=== PATIENT | female | born 1960 | race Caucasian/White ===

== ENCOUNTER → 2016-07-23 | Outpatient (CLI) | payer BC ==
[~2016-07-23] MED LIST: ASPI81CH2 PO; FERR325T51 PO; LEVO88TA PO; MULTTAB58 PO
[2016-07-23 10:49] LABS: BASO % 0.9 %; BASO ABS # 0.03 K/uL (0-0.2); COMPLETE YES; EOS % 4.1 %; HEMATOCRIT 39.3 % (37-47); LYMPH % 34.9 %; LYMPH ABS # 1.19 K/uL (1.2-3.4); MEAN CELL VOLUME 92.7 fL (80-100); MEAN CORPUSCULAR HEMOGLOBIN 29.5 pg (25-34); MEAN CORPUSCULAR HGB CONC 31.8 g/dl (32-36); MEAN PLATELET VOLUME 9.4 fL (7.4-10.4); MONO % 13.2 %; NEUT % 46.9 %; PLATELET COUNT 266 K/uL (130-400); RED BLOOD COUNT 4.24 M/uL (4.2-5.4); WHITE BLOOD COUNT 3.41 K/uL (4.8-10.8)
[2016-07-23 11:01] LABS: ALT/SGPT 34 U/L (12-78); AST/SGOT 28 U/L (15-37); BLOOD UREA NITROGEN 15 mg/dl (7-18); BUN/CREATININE RATIO 15.9 (10-20); CARBON DIOXIDE 28 mmol/L (21-32); CHLORIDE 109 mmol/L (98-107); CHOLESTEROL 180 mg/dl (0-200); CREATININE 0.91 mg/dl (0.60-1.20); GLUCOSE 83 mg/dl (70-99); POTASSIUM 4.2 mmol/L (3.5-5.1); SODIUM 143 mmol/L (136-145); TRIGLYCERIDES 47 mg/dl (0-150); VERY LOW DENSITY LIPOPROT CALC 9 mg/dl
[2016-07-23 11:11] LABS: ALB/GLOB RATIO 1.1 (0.9-2); ALKALINE PHOSPHATASE 91 U/L (45-117); CHOLESTEROL/HDL RATIO 1.7; FERRITIN 20.8 ng/ml (8.0-388.0); HDL CHOLESTEROL 103 mg/dl; LDL CHOLESTEROL CALCULATED 68 mg/dl; TOTAL IRON BINDING CAPACITY 395 mcg/dl (250-450)
[2016-07-23 11:31] LABS: CALCIUM 9.5 mg/dl (8.5-10.1)
== END | disposition home or self-care (01) ==
LOC: C.LABBC 07:51
PROVIDERS: ATTEND Family Medicine
DX: Z13.220 Encounter for screening for lipoid disorders (principal); D64.9 Anemia, unspecified; E03.9 Hypothyroidism, unspecified

== ENCOUNTER → 2016-09-03 | Outpatient (CLI) | payer BC ==
--- NOTE | 2016-09-03 15:52 | MAMMOGRAPHY REPORT ---
BILATERAL DIGITAL SCREENING MAMMOGRAM WITH CAD: 09/03/2016 CLINICAL HISTORY: Routine screening. Patient has no complaints. TECHNIQUE: Current study was also evaluated with a Computer Aided Detection (CAD) system. Bilateral CC and MLO views were obtained. COMPARISON: Comparison is made to exams dated: 06/19/2015 mammogram, 01/19/2014 mammogram, 11/05/2012 m ammogram, 03/11/2011 mammogram - [facility], 11/28/2008, and 10/25/2007. BREAST COMPOSITION: The tissue of both breasts is extremely dense, which lowers the sensitivity of m ammography. FINDINGS: No suspicious masses, calcifications, or areas of architectural distortion are noted in ei ther breast. There has been no significant interval change compared to prior exams. IMPRESSION: ACR BI-RADS CATEGORY 1: NEGATIVE There is no mammographic evidence of malignancy. A 1 year screening mammogram is recommended. The pa tient will receive written notification of the results. Approximately 10% of breast cancers are not detected with mammography. A negative mammographic report should not delay biopsy if a clinically suggestive mass is present. Rosalina Li M.D. /:09/03/2016 12:30:31 Clinical Support Nurse: Annita BILL(Alexx)(), [facility] letter sent: Normal 1/2 BI-RADS Code: ACR BI-RADS Category 1: Negative
== END | disposition home or self-care (01) ==
LOC: C.MAMM 11:25
PROVIDERS: ATTEND Obstetrics & Gynecology
DX: Z12.31 Encounter for screening mammogram for malignant neoplasm of breast (principal)

== ENCOUNTER → 2017-04-07 | Outpatient (CLI) | payer BC | END | disposition home or self-care (01) | LOC: C.PAPS 08:35 | PROVIDERS: ATTEND Physician Assistant | DX: Z01.419 Encounter for gynecological examination (general) (routine) without abnormal findings (principal); Z11.51 Encounter for screening for human papillomavirus (HPV) ==

== ENCOUNTER → 2017-07-08 | Outpatient (CLI) | payer BC ==
[2017-07-08 09:37] LABS: BASO ABS # 0.04 K/uL (0-0.2); EOS % 3.6 %; EOS ABS # 0.14 K/uL (0-0.5); HEMATOCRIT 37.7 % (37-47); HEMOGLOBIN 11.7 g/dL (12.0-16.0); LYMPH % 33.6 %; LYMPH ABS # 1.31 K/uL (1.2-3.4); MEAN CELL VOLUME 85.3 fL (80-100); MEAN CORPUSCULAR HEMOGLOBIN 26.5 pg (25-34); MEAN PLATELET VOLUME 9.4 fL (7.4-10.4); MONO ABS # 0.39 K/uL (0.11-0.59); NEUT % 51.8 %; NEUT ABS # 2.02 K/uL (1.4-6.5); PLATELET COUNT 324 K/uL (130-400); RED CELL DISTRIBUTION WIDTH CV 15.2 % (11.5-14.5); RED CELL DISTRIBUTION WIDTH SD 47.7 fL (36.4-46.3)
[2017-07-08 09:52] LABS: ALBUMIN 3.7 gm/dl (3.4-5.0); ALT/SGPT 34 U/L (12-78); AST/SGOT 31 U/L (15-37); BLOOD UREA NITROGEN 13 mg/dl (7-18); CALCIUM 9.4 mg/dl (8.5-10.1); CARBON DIOXIDE 28 mmol/L (21-32); CREATININE 0.91 mg/dl (0.60-1.20); GLUCOSE 76 mg/dl (70-99); POTASSIUM 4.3 mmol/L (3.5-5.1); SODIUM 141 mmol/L (136-145)
[2017-07-08 10:02] LABS: ALKALINE PHOSPHATASE 115 U/L (45-117); TOTAL PROTEIN 7.2 gm/dl (6.4-8.2)
== END | disposition home or self-care (01) ==
LOC: C.LAB1850 07:21
PROVIDERS: ATTEND Nurse Practitioner Adult Health
DX: E03.9 Hypothyroidism, unspecified (principal); D64.9 Anemia, unspecified; D72.819 Decreased white blood cell count, unspecified

== ENCOUNTER → 2017-09-17 | Outpatient (CLI) | payer BC ==
--- NOTE | 2017-09-17 16:06 | MAMMOGRAPHY REPORT ---
BILATERAL DIGITAL DIAGNOSTIC MAMMOGRAM TOMOSYNTHESIS AND TARGETED BILATERAL ULTRASOUND: 09/17/2017 CLINICAL HISTORY: Callback from screening mammogram for bilateral asymmetries. Family history of gerald lux cancer including her mother, maternal grandmother, and aunt. TECHNIQUE: The study was acquired using full field digital technology and interpreted from soft copy. Breast tomosynthesis in addition to standard 2D mammography was performed. Bilateral CC and MLO spo t compression 2D and tomosynthesis images were obtained. COMPARISON: Comparison is made to exams dated: 09/07/2017 mammogram, 09/03/2016 mammogram, 06/19/2015 isael mogram, 01/19/2014 mammogram, 11/05/2012 mammogram, and 03/11/2011 mammogram - [facility]. BREAST COMPOSITION: The tissue of both breasts is extremely dense, which lowers the sensitivity of ma mmography. FINDINGS: Spot compression views of the left breast demonstrate a persistent lobulated mass measuring approximately 5 mm in the left medial breast at approximately 9:00, for which ultrasound was perform ed. The nodular asymmetry seen within the right lateral anterior breast on the cc view appears simil ar on the spot compression views to prior exams including the June 2015 exam and possibly some of th e older exams such as the 2008 exam. Targeted ultrasound was performed of the left medial breast in the region of the mammographic mass. In the left 930 breast, approximately 5 cm from the nipple, there is an anechoic mass with a few thin internal septations measuring 5 x 3 x 4 mm. The margins are not completely circumscribed. This cor responds with the mammographic mass and likely represents a complicated cyst. However, ultrasound-gu ided core needle biopsy is recommended for further evaluation. Targeted ultrasound was performed of the right lateral breast in the region of the mammographic asymmetry. Sonographically normal tissue is seen in this region, without evidence of a mass or other suspicious sonographic abnormality. IMPRESSION: ACR BI-RADS CATEGORY 4: SUSPICIOUS, ULTRASOUND ACR BI-RADS CATEGORY 4: SUSPICIOUS 1. Anechoic 5 mm mass in the left 930 breast. This corresponds with the mammographic mass and likel y represents a complicated cyst although ultrasound-guided core needle biopsy is recommended for furt her evaluation. 2. The right lateral breast asymmetry appears similar to prior exams including the 2015 exam on the additional views, without a corresponding suspicious sonographic abnormality evident. The asymmetry is probably benign and recommend follow-up diagnostic tomosynthesis mammograms in 6 months to confirm stability. The patient has been verbally notified of the results. She tentatively scheduled the biopsy before l eaving the department. Some breast cancers are not detected with mammography. A negative mammographic report should not yan y biopsy if a clinically suggestive mass is present. Rosalina Li M.D. ah/:09/17/2017 12:42:03 Railroad Firer: RT Priscilla(R)(M), [facility]; Rosalina Li MD, [facility] letter sent: Abnormal 4/5 OVERALL STUDY BIRADS: 4 Suspicious abnormality
== END | disposition home or self-care (01) ==
LOC: C.MAMM 09:35
PROVIDERS: ATTEND Nurse Practitioner Adult Health
DX: N64.89 Other specified disorders of breast (principal); N63.22 Unspecified lump in the left breast, upper inner quadrant

== ENCOUNTER → 2017-09-29 | Outpatient (CLI) | payer BC ==
--- NOTE | 2017-09-29 10:13 | Discharge Instructions ---
Discharge Instructions Procedure Procedure Date: Sep 29, 2017. Reason for visit: Left Mass. Discharge Discharge Date: Sep 29, 2017. Discharge Diagnosis: post left breast ultrasound guided core biopsy Medications Restart Stopped Medication(s): May resume Aspirin tomorrow Instructions Activity Recommendations: Additional Limitations (see below) Return to School/Work: no limitations Recommended Home Diet: No Limitations Provider Instructions: ACTIVITY RECOMMENDATIONS: * No lifting, pushing, pulling or exercising the affected side for three days. RETURN TO SCHOOL/WORK: * You may return to work/school after the procedure, but do not perform any strenuous activities for 24 to 48 hours. MEDICATIONS: * Tylenol (two 325 mg) every four to six hours if needed for mild pain (if not allergic to Tylenol). DIET: * Resume previous diet. SPECIAL CARE INSTRUCTIONS: * Keep biopsy site dry for 24 hours. May shower after 24 hours, but do not soak (bathe) incision. May remove Tegaderm (plastic patch) 24 hours after procedure * Leave the steri-strips on for one week. Allow the steri-strips to fall off by themselves. If not off after one week, you may remove them. You may place a Bandaid crosswise over the strips, if desired. * Apply ice 10 minutes on and 10 minutes off as needed. * Wear a bra at bedtime to sleep more comfortably for 2-3 days. * Your referring physician should have the results after approximately 5 to 7 business days. * Call for unusual bleeding, fever, drainage, etc or if you have any questions call [phone] during normal business hours or after hours call Dr Patton, . FOLLOW UP VISIT: Follow-up with Referring Physician as scheduled. Allergies Coded Allergies: Amoxicillin (Verified Allergy, Unknown, RASH, ITCHING, 11/29/14) Erlinda Ventura Recommendations: Call your doctor if: * Temperature above 101 degrees * Pain not relieved by pain medicine ordered * There is increased drainage or redness from any incision * You have any unanswered questions or concerns. Your Doctors Instructions noted above were prepared by provider Jeane Patton. Patient Signature Section: Patient Instructions Signature Page Adriana Montano Patient (or Guardian) Signature/Date: I have read and understand the instructions given to me by my caregivers. Caregiver/RN/Doctor Signature/Date: The above-named patient and/or guardian has received patient instructions on this date. + Original Patient Signature Page (only) stays with chart. Please make copy for patient.
--- NOTE | 2017-09-29 15:21 | MAMMOGRAPHY REPORT ---
UNILATERAL LEFT DIGITAL DIAGNOSTIC MAMMOGRAM TOMOSYNTHESIS: 09/29/2017 CLINICAL HISTORY: Status post ultrasound-guided core biopsy of a 5 mm mass in the 9:30 left breast. Please refer to the report from left breast ultrasound-guided core biopsy performed at the same time for full detail. IMPRESSION: POST PROCEDURE IMAGING FOR MARKER PLACEMENT Please refer to the report from left breast ultrasound-guided core biopsy performed at the same time for full detail. Some breast cancers are not detected with mammography. A negative mammographic report should not yan y biopsy if a clinically suggestive mass is present. Jeane Patton M.D. ay/:09/29/2017 10:15:03 Tester Operator Helper: RT Boaz(Alexx)(M), [facility] BI-RADS Code: Post Procedure Imaging For Marker Placement
--- NOTE | 2017-09-29 15:21 | MAMMOGRAPHY REPORT ---
ULTRASOUND GUIDED BIOPSY LEFT BREAST: 09/29/2017 CLINICAL HISTORY: 57-year-old woman presents for biopsy of a 5 mm anechoic mass with thin internal no nvascular septations in the 9:30 left breast on ultrasound, thought to correlate with a mammographic mass. COMPARISON: Comparison is made to exams dated: 09/17/2017 ultrasound, 09/17/2017 mammogram, 09/07/2017 m ammogram, 09/03/2016 mammogram, 06/19/2015 mammogram, and 01/19/2014 mammogram - [facility] [place]. PATIENT CONSENT: The procedure, risks and benefits were discussed with the patient and informed conse nt was obtained both verbally and in writing. Specific risks to this procedure include: bleeding, in fection, puncture of adjacent structure, nontarget biopsy, sampling error, pain, metal allergy and me dication reaction. PROCEDURE DESCRIPTION: A time out was performed and the left breast was agreed as the site of biopsy. The skin was prepped and draped in the usual sterile fashion. The anechoic, cystic appearing mass in the 930 left breast was chosen as the target for biopsy. Subcutaneous and intraparenchymal 1% buffer ed lidocaine, with and without epinephrine, was administered as local anesthesia. A skin incision was made. Through the incision, to samples were taken with a 14 gauge Achieve biopsy device. The mass nearly completely resolved after the first biopsy pass. A ribbon shaped metallic marker was placed a t the biopsy site. Hemostasis was achieved after manual compression. The patient tolerated the proced ure well and there was no immediate complication. The samples were sent to the pathology department in an appropriately labeled container. Postprocedure left CC and MLO tomosynthesis images were obtained. There is a new ribbon-shaped biops y marker clip and no significant hematoma in the 9:30 middle one third of the left breast. The biops y marker clip aligns with the previously observed mammographic mass, confirming mammographicsonograp hic correlation. The mass is less well seen, which is also concordant with the ultrasound biopsy fin dings of near complete resolution of the mass after the first biopsy pass. IMPRESSION: ULTRASOUND GUIDED BIOPSY 1. Status post ultrasound-guided core biopsy of a cystic-appearing mass in the 9:30 left breast, with biopsy marker clip placed at the site. 2. Pending benign pathology results, recommend 6 month follow-up right diagnostic tomosynthesis mamm ograms and possible ultrasound to ensure stability of an effacing asymmetry. The patient will receive notification of the biopsy results from her referring physician. Jeane Patton M.D. ay/:09/29/2017 12:13:40 Door Patcher: RT Boaz(Alexx)(Henry), [facility]
== END | disposition home or self-care (01) ==
LOC: C.MAMM 09:29
PROVIDERS: ATTEND Nurse Practitioner Adult Health
DX: N63.20 Unspecified lump in the left breast, unspecified quadrant (principal); N60.12 Diffuse cystic mastopathy of left breast